=== PATIENT | female | born 1935 | race Caucasian/White ===

== ENCOUNTER 2016-08-08 08:00 | Outpatient (CLI) | payer MEDICARE, OTHER | END 2016-08-08 23:59 | DX: G62.9 Polyneuropathy, unspecified (principal); I10 Essential (primary) hypertension; E11.9 Type 2 diabetes mellitus without complications; E78.5 Hyperlipidemia, unspecified; N28.9 Disorder of kidney and ureter, unspecified ==

== ENCOUNTER 2016-11-07 07:23 | Outpatient (CLI) | payer MEDICARE, OTHER ==
[2016-11-07 13:50] LABS: HEMOGLOBIN A1C 0.63 g/dL
== END 2016-11-07 07:24 | disposition home or self-care (01) ==
LOC: LAB.WCP 07:23
PROVIDERS: ATTEND Family Medicine
DX: E11.42 Type 2 diabetes mellitus with diabetic polyneuropathy (principal); I10 Essential (primary) hypertension; K21.9 Gastro-esophageal reflux disease without esophagitis
CPT/HCPCS: 36415; 83036

== ENCOUNTER 2017-02-05 08:00 | Outpatient (CLI) | payer MEDICARE, OTHER ==
[2017-02-05 15:05] LABS: HEMOGLOBIN A1C 0.69 g/dL
[2017-02-05 16:58] LABS: ALBUMIN/GLOBULIN RATIO 1.3 (1.0-2.2); BILIRUBIN,TOTAL 0.5 mg/dL (0.2-1.0); BUN - BLOOD UREA NITROGEN 23 mg/dL (6-20); CALCIUM 9.3 mg/dL (8.5-10.3); CARBON DIOXIDE - CO2 32 mmol/L (21-32); CHLORIDE 95 mmol/L (101-111); CHOL/HDL RATIO 2.6 (<4.4); CHOLESTEROL 153 mg/dL; GFR - MDRD 53 (>89); GLUCOSE 88 mg/dL (70-100); HDL CHOLESTEROL 59 mg/dL; LDL/HDL RATIO 0.9 (<4.4); POTASSIUM 4.4 mmol/L (3.5-5.0); SODIUM 135 mmol/L (135-145); TOTAL PROTEIN 7.9 g/dL (6.7-8.2); TRIGLYCERIDES 207 mg/dL; VLDL CHOLESTEROL 41 mg/dL
== END 2017-02-05 08:01 | disposition home or self-care (01) ==
LOC: LAB.WCP 08:00
PROVIDERS: ATTEND Family Medicine
DX: E11.42 Type 2 diabetes mellitus with diabetic polyneuropathy (principal); I10 Essential (primary) hypertension; E78.5 Hyperlipidemia, unspecified; N28.9 Disorder of kidney and ureter, unspecified
CPT/HCPCS: 36415; 80053; 80061; 82043; 83036

== ENCOUNTER 2017-05-03 09:39 | Outpatient (CLI) | payer MEDICARE, OTHER ==
[2017-05-03 15:38] LABS: HEMOGLOBIN A1C 0.69 g/dL
== END 2017-05-03 09:40 | disposition home or self-care (01) ==
LOC: LAB.WCP 09:39
PROVIDERS: ATTEND Family Medicine
DX: E11.42 Type 2 diabetes mellitus with diabetic polyneuropathy (principal)
CPT/HCPCS: 36415; 83036

== ENCOUNTER 2017-10-17 09:07 | Outpatient (CLI) | payer MEDICARE, OTHER ==
[2017-10-17 12:46] LABS: HGB - HEMOGLOBIN 13.8 g/dL (12.0-16.0); MEAN CORPUSCULAR HEMOGLOBIN 30.2 pg (27.0-31.0); MEAN CORPUSCULAR HGB CONC 33.3 g/dL (32.0-36.0); MEAN CORPUSCULAR VOLUME 90.6 fL (81.0-99.0); MEAN PLATELET VOLUME 8.8 fL (7.9-10.8); RED BLOOD COUNT 4.59 10^6/uL (4.20-5.40); RED CELL DISTRIBUTION WIDTH 15.6 % (12.0-15.0); WHITE BLOOD COUNT 5.3 x10^3/uL (4.8-10.8)
[2017-10-17 13:30] LABS: ALBUMIN 4.2 g/dL (3.2-5.5); ALBUMIN/GLOBULIN RATIO 1.1 (1.0-2.2); ALKALINE PHOSPHATASE 70 IU/L (42-121); ALT ALANINE AMINOTRANSFERASE 32 IU/L (10-60); AST ASPARTATE AMINOTRANSFERASE 36 IU/L (10-42); BILIRUBIN,TOTAL 0.5 mg/dL (0.2-1.0); BUN - BLOOD UREA NITROGEN 21 mg/dL (6-20); CARBON DIOXIDE - CO2 28 mmol/L (21-32); CHLORIDE 102 mmol/L (101-111); CREATININE 1.1 mg/dL (0.4-1.0); GFR - MDRD 47 (>89); GLUCOSE 95 mg/dL (70-100); SODIUM 138 mmol/L (135-145); TOTAL PROTEIN 8.1 g/dL (6.7-8.2)
[2017-10-17 13:31] LABS: CRP - C-REACTIVE PROTEIN < 1.0 mg/dL (0-1.0)
[2017-10-17 16:44] LABS: RHEUMATOID FACTOR NEGATIVE (Negative)
== END 2017-10-17 09:08 ==
LOC: LAB.WCP 09:07
PROVIDERS: ATTEND Family Medicine
DX: E11.42 Type 2 diabetes mellitus with diabetic polyneuropathy (principal); I10 Essential (primary) hypertension; N28.9 Disorder of kidney and ureter, unspecified; M18.12 Unilateral primary osteoarthritis of first carpometacarpal joint, left hand; M19.011 Primary osteoarthritis, right shoulder; M54.5 Low back pain; G89.29 Other chronic pain
CPT/HCPCS: 36415; 80053; 84550; 85027; 85651; 86038; 86140; 86200; 86430

== ENCOUNTER 2017-11-12 07:39 | Outpatient (CLI) | END 2017-11-12 07:40 | disposition home or self-care (01) ==

== ENCOUNTER 2018-05-23 08:24 | Outpatient (CLI) | payer MEDICARE, OTHER ==
[2018-05-23 14:09] LABS: ALBUMIN 4.1 g/dL (3.2-5.5); ALBUMIN/GLOBULIN RATIO 1.3 (1.0-2.2); ALKALINE PHOSPHATASE 88 IU/L (42-121); ALT ALANINE AMINOTRANSFERASE 22 IU/L (10-60); AST ASPARTATE AMINOTRANSFERASE 30 IU/L (10-42); BILIRUBIN,TOTAL 0.4 mg/dL (0.2-1.0); BUN - BLOOD UREA NITROGEN 13 mg/dL (6-20); CALCIUM 8.9 mg/dL (8.5-10.3); CARBON DIOXIDE - CO2 27 mmol/L (21-32); CHLORIDE 95 mmol/L (101-111); CHOL/HDL RATIO 3.4 (<4.4); CHOLESTEROL 170 mg/dL; CREATININE 0.8 mg/dL (0.4-1.0); GFR - MDRD 68 (>89); GLUCOSE 99 mg/dL (70-100); HDL CHOLESTEROL 50 mg/dL; LDL CHOLESTEROL,CALCULATED 71 mg/dL; LDL/HDL RATIO 1.4 (<4.4); SODIUM 131 mmol/L (135-145); TOTAL PROTEIN 7.2 g/dL (6.7-8.2); VLDL CHOLESTEROL 49 mg/dL
[2018-05-23 14:18] LABS: HEMOGLOBIN A1C 0.64 g/dL; HEMOGLOBIN A1C % 6.3 % (4.6-6.2)
== END 2018-05-23 23:59 | disposition home or self-care (01) ==
LOC: LAB.WCP 08:24
PROVIDERS: ATTEND Family Medicine
DX: E11.42 Type 2 diabetes mellitus with diabetic polyneuropathy (principal); M10.9 Gout, unspecified; R94.5 Abnormal results of liver function studies; I10 Essential (primary) hypertension; E78.5 Hyperlipidemia, unspecified
CPT/HCPCS: 36415; 80053; 80061; 83036; 83721; 84443

== ENCOUNTER 2018-08-26 08:00 | Outpatient (CLI) | payer MEDICARE, OTHER ==
[2018-08-26 12:32] LABS: BASOPHILS # (AUTO) 0.1 10^3/uL (0.0-0.1); BASOPHILS % (AUTO) 1.2 %; EOSINOPHILS # (AUTO) 0.4 10^3/uL (0.0-0.7); EOSINOPHILS % (AUTO) 8.2 %; LYMPHOCYTES # (AUTO) 1.8 10^3/uL (1.5-3.5); LYMPHOCYTES % (AUTO) 37.4 %; MEAN CORPUSCULAR HEMOGLOBIN 29.2 pg (27.0-31.0); MEAN CORPUSCULAR HGB CONC 32.6 g/dL (32.0-36.0); MEAN CORPUSCULAR VOLUME 89.6 fL (81.0-99.0); MEAN PLATELET VOLUME 8.2 fL (7.9-10.8); MONOCYTES # (AUTO) 0.4 10^3/uL (0.0-1.0); MONOCYTES % (AUTO) 8.1 %; NEUTROPHILS # (AUTO) 2.1 10^3/uL (1.5-6.6); NEUTROPHILS % (AUTO) 45.1 %; PLT - PLATELET COUNT 223 10^3/uL (130-450); WHITE BLOOD COUNT 4.7 x10^3/uL (4.8-10.8)
[2018-08-26 13:26] LABS: ALBUMIN 4.2 g/dL (3.2-5.5); ALBUMIN/GLOBULIN RATIO 1.2 (1.0-2.2); ALKALINE PHOSPHATASE 61 IU/L (42-121); ALT ALANINE AMINOTRANSFERASE 33 IU/L (10-60); AST ASPARTATE AMINOTRANSFERASE 36 IU/L (10-42); BILIRUBIN,TOTAL 0.7 mg/dL (0.2-1.0); BUN - BLOOD UREA NITROGEN 19 mg/dL (6-20); CALCIUM 9.3 mg/dL (8.5-10.3); CARBON DIOXIDE - CO2 30 mmol/L (21-32); CHLORIDE 99 mmol/L (101-111); CHOL/HDL RATIO 2.7 (<4.4); CHOLESTEROL 151 mg/dL; CREATININE 1.1 mg/dL (0.4-1.0); GFR - MDRD 47 (>89); GLUCOSE 113 mg/dL (70-100); HB2 TOTAL 15.4 g/dL; HDL CHOLESTEROL 55 mg/dL; HEMOGLOBIN A1C 0.75 g/dL; HEMOGLOBIN A1C % 6.6 % (4.6-6.2); LDL CHOLESTEROL,CALCULATED 70 mg/dL; LDL/HDL RATIO 1.3 (<4.4); SODIUM 138 mmol/L (135-145); TOTAL PROTEIN 7.7 g/dL (6.7-8.2); VLDL CHOLESTEROL 26 mg/dL
== END 2018-08-26 23:59 | disposition home or self-care (01) ==
LOC: LAB.WCP 08:00
PROVIDERS: ATTEND Family Medicine
DX: I10 Essential (primary) hypertension (principal); E11.42 Type 2 diabetes mellitus with diabetic polyneuropathy; E78.5 Hyperlipidemia, unspecified
CPT/HCPCS: 36415; 80053; 80061; 83036; 83721; 85025

== ENCOUNTER 2018-11-25 08:12 | Outpatient (CLI) | payer MEDICARE, OTHER ==
[2018-11-25 12:36] LABS: BASOPHILS # (AUTO) 0.1 10^3/uL (0.0-0.1); BASOPHILS % (AUTO) 1.2 %; EOSINOPHILS # (AUTO) 0.5 10^3/uL (0.0-0.7); EOSINOPHILS % (AUTO) 10.6 %; HGB - HEMOGLOBIN 13.8 g/dL (12.0-16.0); LYMPHOCYTES # (AUTO) 1.9 10^3/uL (1.5-3.5); LYMPHOCYTES % (AUTO) 38.9 %; MEAN CORPUSCULAR HEMOGLOBIN 30.1 pg (27.0-31.0); MEAN CORPUSCULAR HGB CONC 32.8 g/dL (32.0-36.0); MEAN CORPUSCULAR VOLUME 91.7 fL (81.0-99.0); MEAN PLATELET VOLUME 9.5 fL (7.9-10.8); MONOCYTES # (AUTO) 0.4 10^3/uL (0.0-1.0); MONOCYTES % (AUTO) 8.2 %; NEUTROPHILS % (AUTO) 40.9 %; PLT - PLATELET COUNT 319 10^3/uL (130-450); RED BLOOD COUNT 4.59 10^6/uL (4.20-5.40); RED CELL DISTRIBUTION WIDTH 13.3 % (12.0-15.0)
[2018-11-25 13:14] LABS: ALBUMIN 4.2 g/dL (3.2-5.5); ALBUMIN/GLOBULIN RATIO 1.1 (1.0-2.2); ALKALINE PHOSPHATASE 105 IU/L (42-121); ALT ALANINE AMINOTRANSFERASE 38 IU/L (10-60); AST ASPARTATE AMINOTRANSFERASE 44 IU/L (10-42); BILIRUBIN,TOTAL 0.6 mg/dL (0.2-1.0); BUN - BLOOD UREA NITROGEN 22 mg/dL (6-20); CALCIUM 9.2 mg/dL (8.5-10.3); CARBON DIOXIDE - CO2 26 mmol/L (21-32); CHLORIDE 94 mmol/L (101-111); CHOL/HDL RATIO 2.3 (<4.4); CHOLESTEROL 127 mg/dL; GFR - MDRD 53 (>89); GLUCOSE 114 mg/dL (70-100); HDL CHOLESTEROL 55 mg/dL; LDL CHOLESTEROL,CALCULATED 46 mg/dL; LDL/HDL RATIO 0.8 (<4.4); SODIUM 132 mmol/L (135-145); VLDL CHOLESTEROL 26 mg/dL
[2018-11-25 13:25] LABS: HB2 TOTAL 14.7 g/dL; HEMOGLOBIN A1C 0.68 g/dL; HEMOGLOBIN A1C % 6.4 % (4.6-6.2)
== END 2018-11-25 23:59 | disposition home or self-care (01) ==
LOC: LAB.WCP 08:12
PROVIDERS: ATTEND Family Medicine
DX: I10 Essential (primary) hypertension (principal); E11.42 Type 2 diabetes mellitus with diabetic polyneuropathy; E78.5 Hyperlipidemia, unspecified; N28.9 Disorder of kidney and ureter, unspecified
CPT/HCPCS: 36415; 80053; 80061; 83036; 83721; 85025

== ENCOUNTER 2018-12-11 10:01 | Outpatient (CLI) | payer MEDICARE, OTHER ==
--- NOTE | 2018-12-12 08:58 | DEXA Report ---
Reason: POSTMENOPAUSAL STATUS Procedure Date: 12/11/2018 Accession Number: [id number] / [id number] Procedure: DEX - Dexa Spine and/or Hip CPT Code: FULL RESULT: EXAM: Dexa Spine and/or Hip DATE: 12/11/2018 10:45 AM CLINICAL HISTORY: POSTMENOPAUSAL STATUS TECHNIQUE: Dual energy x-ray absorptiometry (DXA) was performed on a [employer] System. Regions measured are the AP Spine, femoral neck, and if needed forearm. COMPARISON: None. In accordance with the International Society for Clinical Densitometry (ISCD) guidelines, data from previous exams may be reanalyzed using current recommendations and techniques. This is done to allow a more accurate basis for comparison with the current study. FINDINGS: The data for the lumbar spine is as follows: BMD (g/cm/cm) T-SCORE Z-SCORE REGION L1 0.874 -2.1 0.1 L2 0.951 -2.1 0.2 L3 1.008 -1.6 0.7 L4 1.150 -0.4 1.9 TOTAL 1.004 -1.5 0.8 NOTE: All evaluable vertebrae are used for classification The data for the hip is as follows: BMD (g/cm/cm) T-SCORE Z-SCORE REGION Neck 0.791 -1.8 0.8 TOTAL 0.928 -0.6 1.9 NOTE: The femoral neck or total proximal femur, whichever is lowest, is used for classification. IMPRESSION: THE WHO CLASSIFICATION BASED ON THE INTERNATIONAL REFERENCE STANDARD IS OSTEOPENIA. THE FRACTURE RISK IS INCREASED. RECOMMENDATION: Patients with diagnosis of osteoporosis or osteopenia should have regular bone mineral density assessment. For those eligible for Medicare, routine testing is allowed once every 2 years. Testing frequency can be increased for patients who have rapidly progressing disease or for those who are receiving medical therapy to restore bone mass. COMMENT: World Health Organization (WHO) definitions for osteoporosis and osteopenia: NORMAL BMD: T-score at -1.0 or higher, fracture risk is low OSTEOPENIA BMD: T-score between -1.0 and -2.5, fracture risk is increased. OSTEOPOROSIS BMD: T-score at -2.5 or lower, fracture risk is high. National Osteoporosis Foundation recommends: 1. Obtain adequate dietary calcium (at least 1200 mg per day) and vitamin D (400-800 international units per day). 2. Participate, as appropriate, in regular weightbearing and muscle-strengthening exercise. 3. Avoid tobacco use and reduce alcohol and caffeine intake. 4. For more detailed information see the website at www.NOF.org.
== END 2018-12-11 10:02 | disposition home or self-care (01) ==
LOC: DI 10:01
PROVIDERS: ATTEND Family Medicine
DX: M85.89 Other specified disorders of bone density and structure, multiple sites (principal); Z78.0 Asymptomatic menopausal state
CPT/HCPCS: 77080

== ENCOUNTER 2018-12-20 | Outpatient (CLI) | payer MEDICARE, OTHER | END 2018-12-20 23:59 | disposition home or self-care (01) | DX: I10 Essential (primary) hypertension (principal) ==

== ENCOUNTER 2018-12-27 07:59 | Outpatient (CLI) | payer MEDICARE, OTHER ==
[2018-12-27 12:19] LABS: CALCIUM 9.5 mg/dL (8.5-10.3); CREATININE 0.8 mg/dL (0.4-1.0)
== END 2018-12-27 23:59 | disposition home or self-care (01) ==
LOC: LAB.WCP 07:59
PROVIDERS: ATTEND Family Medicine
DX: E87.1 Hypo-osmolality and hyponatremia (principal)
CPT/HCPCS: 36415; 80048

== ENCOUNTER 2019-04-30 09:00 | Outpatient (CLI) | payer MEDICARE, OTHER ==
[2019-04-30 12:56] LABS: CALCIUM 9.5 mg/dL (8.5-10.3)
[2019-04-30 13:27] LABS: HB2 TOTAL 14.9 g/dL; HEMOGLOBIN A1C 0.74 g/dL; HEMOGLOBIN A1C % 6.7 % (4.6-6.2)
== END 2019-04-30 23:59 | disposition home or self-care (01) ==
LOC: LAB.WCP 09:00
PROVIDERS: ATTEND Family Medicine
DX: E11.42 Type 2 diabetes mellitus with diabetic polyneuropathy (principal)
CPT/HCPCS: 36415; 80048; 83036

== ENCOUNTER 2019-10-31 08:00 | Outpatient (CLI) | payer MEDICARE, OTHER ==
[2019-10-31 12:02] LABS: BASOPHILS # (AUTO) 0.1 10^3/uL (0.0-0.1); BASOPHILS % (AUTO) 0.9 %; EOSINOPHILS # (AUTO) 0.2 10^3/uL (0.0-0.7); EOSINOPHILS % (AUTO) 3.6 %; HGB - HEMOGLOBIN 13.7 g/dL (12.0-16.0); LYMPHOCYTES % (AUTO) 30.6 %; MEAN CORPUSCULAR HEMOGLOBIN 30.3 pg (27.0-31.0); MEAN CORPUSCULAR HGB CONC 31.4 g/dL (32.0-36.0); MEAN CORPUSCULAR VOLUME 96.5 fL (81.0-99.0); MEAN PLATELET VOLUME 10.5 fL (7.9-10.8); MONOCYTES # (AUTO) 0.4 10^3/uL (0.0-1.0); MONOCYTES % (AUTO) 6.3 %; NEUTROPHILS # (AUTO) 3.9 10^3/uL (1.5-6.6); NEUTROPHILS % (AUTO) 58.3 %; PLT - PLATELET COUNT 216 10^3/uL (130-450); RED BLOOD COUNT 4.52 10^6/uL (4.20-5.40); RED CELL DISTRIBUTION WIDTH 13.9 % (12.0-15.0); WHITE BLOOD COUNT 6.6 x10^3/uL (4.8-10.8)
[2019-10-31 12:27] LABS: HB2 TOTAL 14.2 g/dL; HEMOGLOBIN A1C 0.59 g/dL
[2019-10-31 12:36] LABS: ALBUMIN 3.7 g/dL (3.2-5.5); ALKALINE PHOSPHATASE 175 IU/L (42-121); ALT ALANINE AMINOTRANSFERASE 48 IU/L (10-60); AST ASPARTATE AMINOTRANSFERASE 85 IU/L (10-42); BILIRUBIN,TOTAL 0.8 mg/dL (0.2-1.0); BUN - BLOOD UREA NITROGEN 13 mg/dL (6-20); CALCIUM 9.2 mg/dL (8.5-10.3); CARBON DIOXIDE - CO2 27 mmol/L (21-32); CHLORIDE 100 mmol/L (101-111); CHOL/HDL RATIO 2.4 (<4.4); CHOLESTEROL 152 mg/dL; CREATININE 0.8 mg/dL (0.4-1.0); GLUCOSE 106 mg/dL (70-100); HDL CHOLESTEROL 64 mg/dL; LDL CHOLESTEROL,CALCULATED 62 mg/dL; SODIUM 136 mmol/L (135-145); TOTAL PROTEIN 7.5 g/dL (6.7-8.2); VLDL CHOLESTEROL 26 mg/dL
[2019-10-31 13:24] LABS: PLATELET ESTIMATE, MANUAL NORMAL (130-450,000) (NORMAL); PLATELET MORPHOLOGY NORMAL APPEARANCE (NORMAL); RBC MORPHOLOGY (MULTIPLE) NORMAL APPEARANCE (NORMAL)
== END 2019-10-31 23:59 | disposition home or self-care (01) ==
LOC: LAB.WCP 08:00
PROVIDERS: ATTEND Family Medicine
DX: E11.42 Type 2 diabetes mellitus with diabetic polyneuropathy (principal)
CPT/HCPCS: 36415; 80053; 80061; 83036; 83721; 85025

== ENCOUNTER 2019-11-15 07:20 | Outpatient (CLI) | payer MEDICARE, OTHER ==
--- NOTE | 2019-11-15 19:11 | Ultrasound Report ---
PROCEDURE: Abdomen Complete INDICATIONS: ABNORMAL LIVER FUNCTION TEST TECHNIQUE: Real-time scanning was performed of the abdominal and retroperitoneal organs, with image documentatio n. COMPARISON: None. FINDINGS: Liver: The liver has a coarsened echo pattern and surface nodularity suggesting possible cirrhotic ch jeanie. No focal liver masses. Gallbladder: Contains an incidental 3 mm polyp. No gallstones. No gallbladder wall thickening or pain on examination. Biliary ducts: Intrahepatic bile ducts are non-dilated. Extrahepatic bile duct caliber measures 5 m m. Normal is 6-7 mm or less in diameter, or 10 mm or less post-cholecystectomy. Pancreas: Visualized portions of the pancreas are sonographically normal. Spleen: Spleen is normal in size and homogeneous in echotexture. Kidneys: Kidneys are somewhat small. Right kidney measures 8.0 cm long; left kidney measures 7.8 cm long. No hydronephrosis or nephrolithiasis. No solid masses. Aorta: Visualized aorta is normal in caliber at less than 3 cm. Iliacs: Proximal common iliac arteries are normal in caliber at less than 2.5 cm. IVC: Intrahepatic inferior vena cava is patent. Miscellaneous: No free abdominal fluid. IMPRESSION: 1. Appearance of the liver suggest possible cirrhotic change. No focal liver masses. 2. No gallstones. No dilated ducts. 3. Kidneys are somewhat small, likely within normal limits for patient age. Reviewed by: Michael Lainez MD on 11/15/2019 6:10 PM [place] Approved by: Michael Lainez MD on 11/15/2019 6:10 PM [place]ANNA Station ID: [id number]
== END 2019-11-15 07:21 | disposition home or self-care (01) ==
LOC: DI 07:20
PROVIDERS: ATTEND Family Medicine
DX: R93.2 Abnormal findings on diagnostic imaging of liver and biliary tract (principal)
CPT/HCPCS: 76700

== ENCOUNTER 2019-12-09 15:21 | Emergency (ER) | payer MEDICARE, OTHER ==
[2019-12-09] MEDS ORDERED: ACETAMINOPHEN 325 MG TABLET PO STA (16:52)
--- NOTE | 2019-12-09 16:57 | ED Physician Documentation ---
History of Present Illness - Stated complaint Stated Complaint: GLF - HIT HEAD - Chief complaint Chief Complaint: Trauma Hd/Nk - History obtained from History obtained from: Patient - History of Present Illness Timing: Prior to arrival, How many hours ago (3) Pain level max: 10 Pain level now: 5 - Additonal information Additional information: 84-year-old female presents to the emergency department with a large posterior scalp hematoma after ground-level fall at home. She reports that she was moving some heavy boxes in the garage in order to facilitate moving her vehicle into it. Unfortunately 1 of these boxes struck her she fell back striking her head on the concrete.She denies that she had any loss of consciousness but had difficulty standing up after the fall. She felt that she was dizzy. She takes no blood thinners. Review of Systems Constitutional: denies: Fever, Chills Cardiac: denies: Chest pain / pressure, Palpitations Respiratory: denies: Dyspnea, Cough GI: denies: Abdominal Pain, Vomiting Skin: reports: Other (4 cm circumferential scalp hematoma posterior scalp). denies: Rash, Lesions Musculoskeletal: denies: Neck pain, Back pain, Extremity pain Neurologic: reports: Headache. denies: Generalized weakness, Focal weakness, Numbness, Difficulty speaking, Syncope, Seizure, Confused, Altered mental status PD PAST MEDICAL HISTORY - Past Medical History Past Medical History: Yes Cardiovascular: Hypertension, High cholesterol Endocrine/Autoimmune: Type 2 diabetes - Past Surgical History Past Surgical History: Yes - Present Medications Home Medications: Ambulatory Orders Medication Instructions Recorded Confirmed RX: Lisinopril [Prinivil] 12/09/19 RX: Simvastatin 12/09/19 - Allergies Allergies/Adverse Reactions: Allergies Allergy/AdvReac Type Severity Reaction Status Date / Time No Known Drug Allergies Allergy Verified 12/09/19 15:25 - Social History Does the pt smoke?: No Smoking Status: Never smoker Does the pt drink ETOH?: No Does the pt have substance abuse?: No - Immunizations Immunizations are current?: Yes PD ED PE NORMAL - General General: Alert and oriented X 3, No acute distress, Well developed/nourished - HEENT HEENT: PERRL, Ears normal, Other (negative racoons, negative rosenbaum sign; no ear or nasal draiange) - Neck Neck: Supple, no meningeal sign - Cardiac Cardiac: RRR, No murmur - Respiratory Respiratory: No respiratory distress - Abdomen Abdomen: Normal bowel sounds, Non tender - Back Back: No CVA TTP, No spinal TTP - Derm Derm: Normal color, Warm and dry, Other (4 cm circumferential scalp hematoma po sterior occiput) - Extremities Extremities: No deformity, No tenderness to palpate - Neuro Neuro: Alert and oriented X 3, fire tender 2-12 intact, No motor deficit, No sensory deficit, Other (normal usassisted gait) Eye Opening: Spontaneous Motor: Obeys Commands Verbal: Oriented GCS Score: 15 Results - Vitals Vitals: Vital Signs - 24 hr 12/09/19 15:25 Temperature 36.5 C Heart Rate 85 Respiratory 14 Rate Blood Pressure 171/87 H O2 Saturation 98 Oxygen O2 Source Room air - Rads (name of study) CT head Radiology: Final report received PD MEDICAL DECISION MAKING - ED course Complexity details: reviewed results, d/w patient ED course: 84 year old female presents to the ED with a large posterior occiupt scalp hematoma folowing a GLF this afternoon at hoem when she was hit by large boxes that she was moving. She has had no LOC, seizure activity. She is not taking blood thinners - Given the large scalp hematoma CT scanning was completed to rule out any type of intracranial injury. - large scalp hematoma noted on CT, but no e/o SDH, EDH or worrisome TBI - dc home. emergent return precautions discussed Departure - Departure Disposition: 01 Home, Self Care Clinical Impression: Fall Scalp hematoma Qualifiers: Encounter type: initial encounter Qualified Code(s): S00.03XA - Contusion of scalp, initial encounter Condition: Stable Record reviewed to determine appropriate education?: Yes Instructions: ED Hematoma Follow-Up: Raza Kim DO [Primary Care Provider] - Comments: Hannah the CT scanning of your head does not show any broken bones or bruising or bleeding on the brain. There is a large bruise in the skin of your head but we expect this after the fall. You can take Tylenol at home for pain. I would continue apply the ice pack. Continue to follow-up with your primary doctor tomorrow as already scheduled. Return to the emergency department if you have a suddenly severe headache, uncontrolled vomiting, cannot walk speak or move normally
--- NOTE | 2019-12-09 17:53 | CT Report ---
PROCEDURE: HEAD WO INDICATIONS: Ground-level fall TECHNIQUE: Noncontrast 4.5 mm thick angled axial sections acquired from the foramen magnum to the vertex. For r adiation dose reduction, the following was used: automated exposure control, adjustment of mA and/or kV according to patient size. COMPARISON: None. FINDINGS: Image quality: Excellent. CSF spaces: Basal cisterns are patent. No abnormal extra-axial fluid collection. Ventricles are no rmal in size and shape. Brain: No no evidence of acute intracranial hemorrhage. There is global cerebral volume loss with chr onic vascular ischemic change, both advanced even for the patient's age. No CT evidence of acute larg e territory infarct. Skull and face: Calvarium and visualized facial bones are intact, without suspicious lesions. No ac sandee orbital abnormality. Scalp hematoma in the high posterior parietal region near midline. Sinuses: Visualized sinuses and mastoids are clear. IMPRESSION: No acute intracranial abnormality demonstrated. Scalp hematoma in the high posterior par ietal region near midline. Reviewed by: Jeff Lopez MD on 12/09/2019 5:52 PM PDT Approved by: Jeff Lopez MD on 12/09/2019 5:52 PM PDT Station ID: [id number]
[2019-12-09 18:25] VITALS: BP 149/80
== END 2019-12-09 18:28 | disposition home or self-care (01) ==
LOC: ED 15:21
DX: S00.03XA Contusion of scalp, initial encounter (principal); W18.09XA Striking against other object with subsequent fall, initial encounter; Y93.89 Activity, other specified; Y92.008 Other place in unspecified non-institutional (private) residence as the place of occurrence of the external cause; I10 Essential (primary) hypertension; E11.9 Type 2 diabetes mellitus without complications
CPT/HCPCS: 70450; 99282; 99284; A9270

== ENCOUNTER 2020-03-30 08:00 | Outpatient (CLI) | payer MEDICARE, OTHER ==
[2020-03-30 18:11] LABS: PT - PROTHROMBIN TIME 11.5 secs (9.9-12.6)
[2020-03-30 18:28] LABS: ALBUMIN 3.7 g/dL (3.2-5.5); ALBUMIN/GLOBULIN RATIO 0.9 (1.0-2.2); ALKALINE PHOSPHATASE 260 IU/L (42-121); ALT ALANINE AMINOTRANSFERASE 40 IU/L (10-60); AST ASPARTATE AMINOTRANSFERASE 83 IU/L (10-42); BILIRUBIN,TOTAL 0.6 mg/dL (0.2-1.0); BUN - BLOOD UREA NITROGEN 16 mg/dL (6-20); CALCIUM 9.3 mg/dL (8.5-10.3); CARBON DIOXIDE - CO2 26 mmol/L (21-32); CHLORIDE 100 mmol/L (101-111); CHOL/HDL RATIO 2.2 (<4.4); CHOLESTEROL 169 mg/dL; CREATININE 0.8 mg/dL (0.4-1.0); GLUCOSE 80 mg/dL (70-100); HDL CHOLESTEROL 77 mg/dL; LDL CHOLESTEROL,CALCULATED 76 mg/dL; SODIUM 136 mmol/L (135-145); VLDL CHOLESTEROL 16 mg/dL
[2020-03-30 18:29] LABS: BASOPHILS # (AUTO) 0.1 10^3/uL (0.0-0.1); BASOPHILS % (AUTO) 1.6 %; EOSINOPHILS # (AUTO) 0.5 10^3/uL (0.0-0.7); EOSINOPHILS % (AUTO) 7.7 %; HGB - HEMOGLOBIN 13.5 g/dL (12.0-16.0); LYMPHOCYTES % (AUTO) 29.8 %; MEAN CORPUSCULAR HEMOGLOBIN 31.8 pg (27.0-31.0); MEAN CORPUSCULAR HGB CONC 32.5 g/dL (32.0-36.0); MEAN CORPUSCULAR VOLUME 97.9 fL (81.0-99.0); MEAN PLATELET VOLUME 10.1 fL (7.9-10.8); MONOCYTES # (AUTO) 0.5 10^3/uL (0.0-1.0); MONOCYTES % (AUTO) 7.7 %; NEUTROPHILS # (AUTO) 3.6 10^3/uL (1.5-6.6); NEUTROPHILS % (AUTO) 53.1 %; PLT - PLATELET COUNT 233 10^3/uL (130-450); RED BLOOD COUNT 4.25 10^6/uL (4.20-5.40); RED CELL DISTRIBUTION WIDTH 14.6 % (12.0-15.0); WHITE BLOOD COUNT 6.8 x10^3/uL (4.8-10.8)
[2020-03-30 18:43] LABS: CREATININE,URINE 66.5 mg/dL; MICROALBUM/CREATININE RATIO,UR 84.2 ug/mg (<30.0); MICROALBUMIN,URINE 5.6 mg/dL (0-300.0)
[2020-03-30 19:15] LABS: PLATELET ESTIMATE, MANUAL NORMAL (130-450,000) (NORMAL); PLATELET MORPHOLOGY NORMAL APPEARANCE (NORMAL); RBC MORPHOLOGY (MULTIPLE) NORMAL APPEARANCE (NORMAL)
[2020-03-30 21:35] LABS: HEMOGLOBIN A1c% 5.6 % (4.27-6.07)
== END 2020-03-30 23:59 | disposition home or self-care (01) ==
LOC: LAB.WCP 08:00
PROVIDERS: ATTEND Family Medicine
DX: E11.42 Type 2 diabetes mellitus with diabetic polyneuropathy (principal); E78.5 Hyperlipidemia, unspecified; K74.60 Unspecified cirrhosis of liver
CPT/HCPCS: 36415; 80053; 80061; 82043; 82105; 82570; 83036; 83721; 85025; 85610

== ENCOUNTER 2020-04-09 06:49 | Outpatient (CLI) | payer MEDICARE, OTHER ==
--- NOTE | 2020-04-09 14:48 | Ultrasound Report ---
PROCEDURE: Abdomen Limited INDICATIONS: CIRRHOSIS TECHNIQUE: Real-time scanning was performed of the abdominal and retroperitoneal organs, with image documentatio n. COMPARISON: None. FINDINGS: Liver: Liver measures 9.8 cm with an overall coarsened appearance. Gallbladder: Gallbladder demonstrates a nonmobile focus of increased echogenicity within the fundus m easuring 4 x 3 mm. Wall thickness is within normal limits measuring 2 mm. Biliary ducts: Intrahepatic bile ducts are non-dilated. Extrahepatic bile duct caliber measures 4 m m. Normal is 6-7 mm or less in diameter, or 10 mm or less post-cholecystectomy. Pancreas: Visualized portions of the pancreas demonstrates a cystic focus measuring 11 x 7 x 6 mm. I t appears likely to have been present on prior exam, although suboptimally evaluated. Spleen: Spleen is normal in size and homogeneous in echotexture. Kidneys: Kidneys are normal in size and echotexture. Right kidney measures 8.5 cm long. No hydrone phrosis or nephrolithiasis. No solid masses. Simple right inferior pole cyst is noted measuring 10 x 7 x 9 mm. IVC: Intrahepatic inferior vena cava is patent. Miscellaneous: No free abdominal fluid. IMPRESSION: 1. Persistent appearance of nodularity of the liver suggestive of cirrhosis. 2. Pancreatic cyst, likely present on prior exam without ductal dilation. Appearance is indeterminate based on current exam. Pancreatic CT versus serial ultrasound follow-up is recommended, as cystic ma lignancy cannot be excluded. Reviewed by: Sheree Dean MD on 04/09/2020 2:46 PM PST Approved by: Sheree Dean MD on 04/09/2020 2:46 PM PST Station ID: [id number]
== END 2020-04-09 06:50 | disposition home or self-care (01) ==
LOC: DI 06:49
PROVIDERS: ATTEND Family Medicine
DX: R93.2 Abnormal findings on diagnostic imaging of liver and biliary tract (principal); K86.2 Cyst of pancreas
CPT/HCPCS: 76705

== ENCOUNTER 2020-06-03 10:09 | Outpatient (CLI) | payer MEDICARE, OTHER ==
[2020-06-03 10:56] LABS: CREATININE 0.8 mg/dL (0.4-1.0)
[2020-06-03] MEDS ORDERED: IOVERSOL 320 100 ML VIAL IVP ONE ×2 (11:25→13:39)
--- NOTE | 2020-06-03 17:08 | CT Report ---
PROCEDURE: ABDOMEN W INDICATIONS: PANCREATIC CYST CONTRAST: IV CONTRAST: Optiray 320 ml: 100 PO CONTRAST: *NO PO CONTRAST TECHNIQUE: Noncontrast 3 mm thick sections acquired through the pancreas. After the administration of intraveno us contrast, 3 mm thick pancreatic-phase images acquired through the pancreas, and 5 mm thick portal venous-phase images then acquired from the diaphragm to the iliac crests. 5 mm thick coronal and sag ittal reformats were performed. For radiation dose reduction, the following was used: automated expo sure control, adjustment of mA and/or kV according to patient size. COMPARISON: Abdominal ultrasound 04/09/2020, 11/15/2019. FINDINGS: Image quality: Excellent. Lung bases: There is mild dependent atelectasis. Heart size is borderline enlarged. Pancreas: There is a lobulated cystic lesion in the uncinate process of the pancreas medially measur ing up to 2.9 x 2.7 x 3.9 cm. There is an internal focus of dependent calcification. No discrete sj d nodular enhancing component. A curvilinear component superiorly demonstrates suspected communicatio n with the main pancreatic duct. Within the pancreatic head, there is a lobulated cystic lesion also demonstrated measuring approximately 2.5 x 1.4 x 1.4 cm in aggregate dimension. There is mildly heter ogeneous internal density. Within the body of the pancreas, there is also an oval small cystic lesion measuring 1.0 x 0.7 x 0.7 cm. The lesions demonstrate probable communication with the main pancreati c duct. The main pancreatic duct appears normal in caliber. Other solid organs: Evaluation of the liver demonstrates no discrete hepatic mass lesion. All bladde r demonstrates mild wall thickening without calcified gallstones or pericholecystic fluid. Biliary sy stem is non dilated. There is mild thickening of the adrenal glands. Kidneys demonstrate no hydroneph rosis. Small renal cysts are demonstrated. Peritoneum and bowel: Visualized bowel loops demonstrate normal wall thickness and caliber. No free fluid or air. Nodes and vessels: No retroperitoneal or mesenteric adenopathy by size criteria. Aorta and inferior vena cava are normal in size. Bones: No suspicious bony lesions. No vertebral body compression fractures. Miscellaneous: No ventral hernias. IMPRESSION: 1. Multiple cystic lesions in the straight within the pancreas as described with probable communicati on with the pancreatic duct. 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 2. Heterogeneous density demonstrated within the lobulated cystic lesion in the pancreatic head. A hi gh risk enhancing internal solid component cannot be excluded. Recommend GI consultation and further evaluation with a pancreatic protocol MRI if clinically indicated. 3. Remaining cystic lesions within the uncinate process and pancreatic body demonstrate no definite h igh risk features. Follow-up imaging is recommended in 12 months to demonstrate stability of these le sions. Reviewed by: Rasta Frias MD on 06/03/2020 5:06 PM PST Approved by: Rasta Frias MD on 06/03/2020 5:06 PM PST Station ID: [id number]
== END 2020-06-03 10:10 | disposition home or self-care (01) ==
LOC: DI 10:09
PROVIDERS: ATTEND Family Medicine
DX: K86.2 Cyst of pancreas (principal)
CPT/HCPCS: 36415; 74160; 82565; Q9967

== ENCOUNTER 2020-11-28 00:50 | Inpatient (IN) | payer MEDICARE, OTHER ==
--- NOTE | 2020-11-28 02:26 | ED Physician Documentation ---
PD HPI Fall - Stated complaint Stated Complaint: GLF, DIZZY, BACK/HIP PX - Chief complaint Chief Complaint: Trauma Ch/Bk - History obtained from History obtained from: Patient, Family - History of Present Illness Mechanism of injury: Lost balance Fall distance: Standing position Where injury occurred: Home Timing - onset: Enter time (2100), Today Injury(ies) location: Chest, Left Lower Extremity Quality of pain: Pain Associated symptoms: No: LOC, AMS, Amnesia, Seizures Symptoms improve with: Rest Worsens with: Movement, Palpation Contributing factors: No: Anticoagulated, Intoxicated Similar symptoms before: Has not had sx before Recently seen: Not recently seen - Additional information Additional information: 85-year-old female with a history of a of cirrhosis and pancreatic cyst got up to answer the phone this evening lost her balance fell struck her left hip on the ground and her left ribs against the coffee table. She has pain in her ribs and she has pain in her pelvis. She has pain to get up and walk around. She is not having shortness of breath. She has not been recently ill. Review of Systems Constitutional: denies: Fever Eyes: denies: Decreased vision Ears: denies: Ear pain Nose: denies: Congestion Throat: denies: Sore throat Cardiac: reports: Chest pain / pressure. denies: Palpitations Respiratory: denies: Dyspnea, Cough GI: reports: Constipation. denies: Abdominal Pain, Nausea, Vomiting, Diarrhea : denies: Dysuria, Frequency Skin: denies: Rash Musculoskeletal: reports: Extremity pain. denies: Neck pain, Back pain, Extremity swelling Neurologic: denies: Generalized weakness, Focal weakness, Numbness PD PAST MEDICAL HISTORY - Past Medical History Past Medical History: Yes Cardiovascular: Hypertension, High cholesterol Endocrine/Autoimmune: Type 2 diabetes GI: Cirrhosis Other Past Medical History: pancreatic cysts - Past Surgical History Past Surgical History: Yes - Present Medications Home Medications: Ambulatory Orders Medication Instructions Recorded Confirmed Simvastatin 12/09/19 lisinopriL [Prinivil] 12/09/19 - Allergies Allergies/Adverse Reactions: Allergies Allergy/AdvReac Type Severity Reaction Status Date / Time No Known Drug Allergies Allergy Verified 11/28/20 00:57 - Social History Does the pt smoke?: No Smoking Status: Never smoker Does the pt drink ETOH?: No Does the pt have substance abuse?: No - Immunizations Immunizations are current?: Yes PD ED PE NORMAL - Vitals Vital signs reviewed: Yes (hypertnesive mild ) - General General: Alert and oriented X 3, No acute distress, Well developed/nourished - HEENT HEENT: Atraumatic, PERRL, EOMI - Neck Neck: Supple, no meningeal sign, No bony TTP - Cardiac Cardiac: RRR, No murmur - Respiratory Respiratory: No respiratory distress, Clear bilaterally, Other (There is point tenderness to the posterior lateral aspect of the chest wall on the left side specifically over the ribs. The first place I placed my hands I felt the fracture shift. ) - Abdomen Abdomen: Normal bowel sounds, Soft, Non tender, Non distended, No organomegaly - Back Back: No CVA TTP, No spinal TTP - Derm Derm: Normal color, Warm and dry, No rash - Extremities Extremities: No deformity, No edema, Other (There is mild point tenderness to the trochanter on the left side and there is point tenderness over the pelvic brim.) - Neuro Neuro: Alert and oriented X 3, blood bank manager 2-12 intact, No motor deficit, No sensory deficit, Normal speech Eye Opening: Spontaneous Motor: Obeys Commands Verbal: Oriented GCS Score: 15 - Psych Psych: Normal mood, Normal affect Results - Vitals Vitals: Vital Signs - 24 hr 11/28/20 11/28/20 11/28/20 00:57 01:03 03:03 Temperature 36.6 C 36.6 C Heart Rate 69 69 61 Respiratory 16 16 16 Rate Blood Pressure 146/60 H 146/60 H 145/61 H O2 Saturation 100 100 100 11/28/20 05:00 Temperature 36.6 C Heart Rate 82 Respiratory 16 Rate Blood Pressure 135/68 H O2 Saturation 100 Oxygen O2 Source Room air - Labs Labs: Laboratory Tests 11/28/20 11/28/20 04:40 04:40 WBC 7.9 RBC 3.68 L Hgb 11.9 L Hct 35.2 L MCV 95.7 MCH 32.3 H MCHC 33.8 RDW 14.6 Plt Count 145 MPV 9.7 Neut # (Auto) 5.4 Lymph # (Auto) 1.7 [place] # (Auto) 0.6 Eos # (Auto) 0.2 Baso # (Auto) 0.1 Absolute Nucleated RBC 0.00 Nucleated RBC % 0.0 Sodium 131 L Potassium 4.6 Chloride 98 L Carbon Dioxide 24 Anion Gap 9.0 BUN 20 Creatinine 1.0 Estimated GFR (MDRD) 52 L Glucose 105 H Calcium 9.0 Total Bilirubin 1.2 H AST 57 H ALT 32 Alkaline Phosphatase 162 H Total Protein 7.5 Albumin 3.3 Globulin 4.2 Albumin/Globulin Ratio 0.8 L Lipase 47 - Rads (name of study) ribs with PA chest Radiology: Prelim report reviewed (Impression: Left lateral eighth through 10th rib fractures.), EMP read indepedently, See rad report Left hip with pelvis Radiology: Prelim report reviewed (Impression: No acute findings.), EMP read indepedently, See rad report Procedures - IVC sono (time) 0220 Bedside IVC sono: IVC measures (cm) (1.46), IVC collapsed c insp (cm) (complete), Dehydration (minimal <500ml) PD MEDICAL DECISION MAKING - ED course Complexity details: reviewed results, re-evaluated patient, considered differential, d/w patient, d/w family ED course: 85-year-old female with a fall in her living room has an injury to her ribs and her pelvis. X-rays were obtained. She is administered Toradol for pain. She has improvement in her pain with use of the Toradol and x-rays demonstrate 3 rib fractures on the left and no fracture to the pelvis or hip. Dr. Bill Ocampo is consulted in the case and graciously agrees to care for the patient in the hospital on the trauma service. Departure - Departure Disposition: [facility] DC/Xfer Clinical Impression: Fracture of multiple ribs of left side Qualifiers: Encounter type: initial encounter Fracture type: closed Qualified Code(s): S22.42XA - Multiple fractures of ribs, left side, initial encounter for closed fracture Contusion of left hip Qualifiers: Encounter type: initial encounter Qualified Code(s): S70.02XA - Contusion of left hip, initial encounter Condition: Stable
[2020-11-28] MEDS ORDERED: KETOROLAC 30 MG/ML VIAL IM STA (02:27)
[2020-11-28 04:46] LABS: BASOPHILS # (AUTO) 0.1 10^3/uL (0.0-0.1); BASOPHILS % (AUTO) 0.6 %; EOSINOPHILS # (AUTO) 0.2 10^3/uL (0.0-0.7); HCT - HEMATOCRIT 35.2 % (37.0-47.0); HGB - HEMOGLOBIN 11.9 g/dL (12.0-16.0); LYMPHOCYTES # (AUTO) 1.7 10^3/uL (1.5-3.5); MEAN CORPUSCULAR HEMOGLOBIN 32.3 pg (27.0-31.0); MEAN CORPUSCULAR HGB CONC 33.8 g/dL (32.0-36.0); MEAN CORPUSCULAR VOLUME 95.7 fL (81.0-99.0); MEAN PLATELET VOLUME 9.7 fL (7.9-10.8); MONOCYTES # (AUTO) 0.6 10^3/uL (0.0-1.0); MONOCYTES % (AUTO) 7.4 %; NEUTROPHILS # (AUTO) 5.4 10^3/uL (1.5-6.6); NEUTROPHILS % (AUTO) 68.7 %; PLT - PLATELET COUNT 145 10^3/uL (130-450); RED BLOOD COUNT 3.68 10^6/uL (4.20-5.40); RED CELL DISTRIBUTION WIDTH 14.6 % (12.0-15.0); WHITE BLOOD COUNT 7.9 x10^3/uL (4.8-10.8)
[2020-11-28 04:58] LABS: ALBUMIN 3.3 g/dL (3.2-5.5); ALBUMIN/GLOBULIN RATIO 0.8 (1.0-2.2); BILIRUBIN,TOTAL 1.2 mg/dL (0.2-1.0); POTASSIUM 4.6 mmol/L (3.5-5.0); TOTAL PROTEIN 7.5 g/dL (6.7-8.2)
[2020-11-28] MEDS ORDERED: ALBUTEROL NEB 2.5 MG/3 ML INH PRN (05:24)
[2020-11-28] MEDS ORDERED: HYDROmorphone 0.5 MG/0.5 ML SYRINGE IVP PRN (05:24)
[2020-11-28] MEDS ORDERED: SODIUM CHLORIDE FLUSH 0.9% 10 ML SYRINGE IVP PRN ×2 (05:24)
[2020-11-28] MEDS ORDERED: METOCLOPRAMIDE 10 MG/2 ML VIAL IVP PRN (05:24)
[2020-11-28] MEDS ORDERED: ACETAMINOPHEN 1,000 MG/100 ML 100 ML IV PRN (05:24)
[2020-11-28] MEDS ORDERED: ONDANSETRON 4 MG/2 ML VIAL IVP PRN (05:24)
[2020-11-28] MEDS ORDERED: methocarbamoL 500 MG TABLET PO SCH (06:00)
[2020-11-28] MEDS ORDERED: KETOROLAC 30 MG/ML VIAL IVP SCH (06:00)
[2020-11-28 06:05] LABS: B. PARAPERTUSSIS- RESP PCR PAN NOT DETECTED; B. PERTUSSIS- RESP PCR PANEL NOT DETECTED; C. PNEUMONIAE- RESP PCR PANEL NOT DETECTED; CORONAVIRUS 229E-RESP PCR NOT DETECTED; CORONAVIRUS HKU1-RESP PCR NOT DETECTED; CORONAVIRUS NL63-RESP PCR NOT DETECTED; CORONAVIRUS OC43-RESP PCR NOT DETECTED; HUMAN METAPNEUMOVIRUS NOT DETECTED; INFLUENZA A- RESP PCR PANEL NOT DETECTED; INFLUENZA B - RESP PCR PANEL NOT DETECTED; M. PNEUMONIAE- RESP PCR PANEL NOT DETECTED; PARAINFLUENZA VIRUS 1 NOT DETECTED; PARAINFLUENZA VIRUS 2 NOT DETECTED; PARAINFLUENZA VIRUS 3 NOT DETECTED; PARAINFLUENZA VIRUS 4 NOT DETECTED; RHINOVIRUS/ENTEROVIRUS NOT DETECTED; RSV- RESP PCR PANEL NOT DETECTED; SARS-CoV-2 -RESP PCR PANEL NOT DETECTED
[2020-11-28] MEDS: SODIUM CHLORIDE FLUSH 0.9% 10 ML SYRINGE IVP SCH ×4 (06:27→17:52)
[2020-11-28] MEDS: D5NS W/20 MEQ KCL 1,000 ML IV SCH ×3 (06:27→22:06)
[2020-11-28] MEDS: methocarbamoL 500 MG TABLET PO SCH ×3 (06:28→18:01)
[2020-11-28] MEDS: PANTOPRAZOLE 40 MG VIAL IVP SCH (06:35)
[2020-11-28] MEDS ORDERED: IPRATROPIUM 0.2 MG/ML NEB INH SCH (07:00)
--- NOTE | 2020-11-28 07:53 | XRAY Report ---
PROCEDURE: Hip w/Pelvis 2-3V LT INDICATIONS: fall on left pain to pelvis TECHNIQUE: AP pelvis with lateral view(s) of the bilateral hip(s). COMPARISON: Correlation is made with the accompanying rib plain films, 11/28/2020. FINDINGS: Bones: No fractures or dislocations. Pelvic ring appears intact. No suspicious bony lesions. Mild to moderate degenerative changes are seen of the hips. At least moderate degenerative change can be seen of the lower lumbar spine. Soft tissues: The visualized bowel gas pattern is normal. Benign-appearing calcifications can be see n involving the left buttock. IMPRESSION: Negative for acute fracture or dislocation. Degenerative changes can be seen. Note: No significant discrepancy from the preliminary report. Reviewed by: Andres Peña MD on 11/28/2020 6:52 AM [place] Approved by: Andres Peña MD on 11/28/2020 6:52 AM [place] Station ID: [id number]
--- NOTE | 2020-11-28 07:56 | XRAY Report ---
PROCEDURE: Ribs w/PA Chest LT INDICATIONS: fall post/lat pain TECHNIQUE: 4 views of the left ribs were acquired, along with a single view chest. COMPARISON: Correlation is made with the accompanying hip plain films, 11/28/2020. FINDINGS: Surgical changes and devices: Left midthoracic postoperative clips are seen. Bones and chest wall: Minimally displaced fractures can be seen involving the left lateral 8th throug h 10th ribs. No suspicious bony lesions. Age-appropriate degenerative changes are seen. Overlying s oft tissues appear unremarkable. Lungs and pleura: No pleural effusions or pneumothorax. Lungs appear clear. Mediastinum: The aorta is prominent and tortuous. The cardiac contours are within normal limits. IMPRESSION: Minimally displaced left lateral 8th through 10th rib fractures. Postoperative and degenerative changes are seen. Note: No significant discrepancy from the preliminary report. Reviewed by: Andres Peña MD on 11/28/2020 6:54 AM [place] Approved by: Andres Peña MD on 11/28/2020 6:54 AM [place] Station ID: [id number]
[2020-11-28 08:22] LABS: BILIRUBIN,URINE NEGATIVE (NEGATIVE); GLUCOSE, URINE (UA) NEGATIVE (NEGATIVE); KETONES,URINE (UA) NEGATIVE (NEGATIVE); LEUKOCYTE ESTERASE, URINE NEGATIVE (NEGATIVE); NITRITE,URINE NEGATIVE (NEGATIVE); OCCULT BLOOD,URINE NEGATIVE (NEGATIVE); PROTEIN,URINE NEGATIVE (NEGATIVE); UROBILINOGEN,URINE 0.2 (NORMAL) E.U./dL (NORMAL)
[2020-11-28 08:23] LABS: CLARITY,URINE CLEAR (CLEAR)
[2020-11-28] MEDS: HEPARIN 5,000 UNIT/ML VIAL SUBQ SCH ×3 (09:05→22:05)
[2020-11-28] MEDS: PREGABALIN 100 MG CAPSULE PO SCH ×2 (09:08→22:06)
--- NOTE | 2020-11-28 10:52 | SURGERY HX AND PHYSICAL(T) ---
Surgical History & Physical - Chief Complaint/HPI Chief Complaint: S/P Fall History of Present Illness: Status post fall no loss of consciousness see below for complete trauma intake - PMH/PSH/Social Hx Does the pt have a hx of MRSA?: No Cardiovascular: Hypertension, High cholesterol Endocrine/Autoimmune: Type 2 diabetes Gastrointestinal: Cirrhosis PMH Other: pancreatic cysts Smoking Status: Never smoker Does the pt drink ETOH?: No Does the pt have substance abuse?: No - Home Meds and Allergies Home Medications: Acetaminophen/Diphenhydramine [Pain Relief Pm 25-500 mg Cplt] 1 each PO QPM PRN 11/28/20 Colchicine [Colcrys] 0.6 mg PO DAILY 11/28/20 Felodipine [Felodipine ER] 5 mg PO DAILY 11/28/20 Lisinopril [Zestril] 20 mg PO DAILY 11/28/20 Meclizine [Antivert] 25 mg PO TID PRN 11/28/20 Melatonin/Pyridoxine [Melatonin 5 mg Tablet] 10 mg PO QPM PRN 11/28/20 Metoprolol Succinate [Toprol Xl] 50 mg PO DAILY 11/28/20 Omeprazole [PriLOSEC] 40 mg PO DAILY 11/28/20 Simvastatin [Zocor] 20 mg PO QPM 11/28/20 Allergies/Adverse Reactions: Allergies Allergy/AdvReac Type Severity Reaction Status Date / Time No Known Drug Allergies Allergy Verified 11/28/20 00:57 - Vital Signs Heart Rate: 82 Blood Pressure: 135/68 Temperature: 37.1 C Respiratory Rate: 20 O2 Saturation: 99 Weight (kg): 49.89 kg Height: 1.42 m - Physical Exam Comments/Other: Chief complaint: Status post fall History of present illness: 85-year-old female status post fall from standing. No loss of consciousness. Ambulatory at scene. Brought in by daughter. Ambulatory to and from motor vehicle. Left chest pain. No shortness of breath. Past medical history and past surgical history reviewed and, in the patients, electronic medical record. Allergies reviewed and within the patient's electronic medical record. Medications reviewed and within the patient's electronic medical record. Review of systems performed and all negative except as noted below/above Please see electronic medical record for the patient's social history Trauma physical exam: Airway: Patient speaking without any respiratory distress, bilateral breath sounds auscultated across all lung abernathy Breathing: Bilateral breath sounds auscultated across all lung abernathy, imaging with no evidence of pneumothorax or hemothorax Circulation: Patient with bilateral peripheral IV access, IV crystalloids running as per protocol, hemodynamically acceptable Patient was evaluated across all extremities please see below and was appropriately exposed to afford such. 1. Head: PERRLA, EOMI, no rob orbital ecchymoses, ears with tympanic membranes intact no otorrhea, no rhinorrhea, c-collar in place, cranial nerves II through XII intact grossly. 2. C-spine clearance: No tenderness to palpation on full range of motion: Full range of motion with no tenderness midline C-spine on flexion and extension Full range of motion with known tenderness midline C-spine on lateral rotation left and right 3. Chest as per above with equal breath sounds bilaterally chest tenderness however no crepitus or other concerning features please see imaging below no splinting no respiratory distress. 4. S1-S2 regular rate rhythm 5. Abdomen soft nontender nondistended no rebound no guarding, FAST performed with no fluid noted in the splenorenal space, hepatorenal space, suprapubic space, or pericardial sac. 6. Patient moving all extremities however extremity discomfort. See dedicated films 7. GCS 15, alert awake and oriented x3 8. No focal sensorimotor deficits bilaterally, no spinal step-offs or tenderness along the thoracic, lumbar spines. 9. No genitourinary complaints or perianal complaints. Imaging: See below - Patient Review Patient Review: Problems were reviewed with the patient during this visit. Medications were reviewed with the patient during this visit. Allergies were reviewed this patient during this visit. Pertinent Tests Reviewed: All pertitent test for this patient were reviewed. - Assessment & Plan Assessment and Plan: 85-year-old female status post fall with left rib fractures 8 through 10. Minimally displaced. No pneumothorax. No other occult injuries. (1) GI - IVF, bowel regimen, advance diet as tolerated. GI ppx. Opiate sparring analgesia. (2) SURGERY - no acute surgical intervention at this time. Pain management. (3) Renal/Lytes - continue IVF. Renal indices within normal limits. (4) Respiratory - O2 as necessary. Continue IS. (5) Heme - Will continue with DVT ppx. H/H stable. (6) Cardiovascular - HD acceptable. (7) Neuro - Opiate sparring analgesia. Antispasmodics with Robaxin. [Toradol]. Neuropathic agents. (8) Physical therapy and Occupational Therapy. IMAGING: Left hip and pelvic x-rays negative for acute fracture or dislocation. Degenerative changes can be seen. Chest films revealed minimally displaced left lateral eighth through 10th rib fractures. Postoperative and degenerative changes are seen.
--- NOTE | 2020-11-28 11:33 | PHARMACY PROGRESS NOTE ---
- Best Possible Medication History Admit Date and Time: 11/28/20 0524 Processed by: Pharmacy Medication History completed: Yes Patient Interview: Completed Secondary Source(s): Physician records As the person ultimately responsible for medication therapy, providers are able to order a medication from an existing home medication list in [facility] via the "Reconcile Routine" prior to Confirmation of that medication by ground support equipment mechanic. Such practice is discouraged except when the physician, in their clinical judgment, deems that a medical need exists for a medication without regard to previous use.
[2020-11-28] MEDS: KETOROLAC 15 MG/ML VIAL IVP SCH ×2 (11:54→19:01)
[2020-11-28] MEDS: INSULIN ASPART 300 UNIT/3 ML PEN SUBQ SCH (22:11)
[2020-11-29] MEDS: methocarbamoL 500 MG TABLET PO SCH ×4 (00:24→18:13)
[2020-11-29] MEDS: KETOROLAC 15 MG/ML VIAL IVP SCH ×4 (00:26→18:13)
[2020-11-29] MEDS: SODIUM CHLORIDE FLUSH 0.9% 10 ML SYRINGE IVP SCH ×6 (01:19→17:04)
[2020-11-29] MEDS: D5NS W/20 MEQ KCL 1,000 ML IV SCH ×2 (06:56→14:45)
[2020-11-29] MEDS: PANTOPRAZOLE 40 MG VIAL IVP SCH (06:57)
--- NOTE | 2020-11-29 08:11 | XRAY Report ---
PROCEDURE: Chest 1 View X-Ray INDICATIONS: eval for PTX/PNA TECHNIQUE: One view of the chest was acquired. COMPARISON: X-ray wrist 11/28/2020 FINDINGS: Surgical changes and devices: Hilar surgical clips are noted. Lungs and pleura: No pleural effusions or pneumothorax. Lungs are clear. Mediastinum: Mediastinal contours appear normal. Heart size is normal. Bones and chest wall: Left lateral eighth through 10th rib fractures are again noted. Overlying soft tissues appear unremarkable. IMPRESSION: No acute pulmonary process. Fractures again noted on the left. Reviewed by: Sheree Dean MD on 11/29/2020 8:10 AM PDT Approved by: Sheree Dean MD on 11/29/2020 8:10 AM PDT Station ID: [id number]
[2020-11-29] MEDS: INSULIN ASPART 300 UNIT/3 ML PEN SUBQ SCH ×3 (08:42→17:04)
[2020-11-29] MEDS: PREGABALIN 100 MG CAPSULE PO SCH (08:42)
[2020-11-29] MEDS: HEPARIN 5,000 UNIT/ML VIAL SUBQ SCH (08:51)
[2020-11-29] MEDS ORDERED: ACETAMINOPHEN 500 MG TABLET PO PRN (12:10)
--- NOTE | 2020-11-29 17:34 | Discharge Plan ---
Discharge Plan Problem Reviewed?: Yes Disposition: 06 Home Health Service Condition: Good Prescriptions: methocarbamoL [Robaxin] 500 mg PO Q6HR PRN #30 tablet PRN Reason: Spasms Pregabalin [Lyrica] 100 mg PO BID #60 tablet traMADol [Ultram] 50 mg PO Q4-6H PRN #30 tablet PRN Reason: Pain Diet: Soft Activity Restrictions: Wt Bearing as Tolerated Shower Restrictions: No Driving Restrictions: Yes (no driving while taking narcotics) Assessment: 1. Follow-up with primary care within 1 to 2 weeks of discharge. 2. With regard to any loss of consciousness, call or return to ER through the change in sensorium/consciousness. 3. Continue with incentive spirometry and pain management as it relates to the rib fractures. 4. Any respiratory compromise proceed to the urgent care/ER and/or your primary care for instructions as a relates to shortness of breath or other symptoms. Plan of Treatment: DISCHARGE INSTRUCTIONS TEMPLATE: Call immediately or go to emergency room for any change in sensorium or fluctuations in consciousness. Use narcotics sparingly. Follow-up with orthopedics for any persistent upper extremity discomfort. Call for any shortness of breath or return to the emergency room for any worrisome symptoms as a relates to respiratory function. No heavy lifting, pushing, or pulling. Stairs are allowed, no stren uous/exertional activities. 5-10lbs weight carrying limit (i.e. gallon of milk) If provided, abdominal binder while out of bed and while ambulating. Call or proceed to clinic/ER for fevers, severe pain, nausea, vomiting, inability to pass flatus/stool, bleeding, wound redness/discharge, weakness, excessively loose stool/diarrhea, or for any other reasonably worrisome symptom or concern. Soft MECHNICAL diet, no raw vegetables, avoid high fiber foods. Colace 100mg by mouth twice to three times daily while taking narcotic pain medication. If no bowel movement in 24-48hr, may take 17g Miralax in 8oz water twice daily until bowel movement. May shower, no submersive bathing. No driving while taking narcotic pain medications. Follow up with primary care provider and/or medical subspecialist following discharge as well. Impression/Plan 1. Tramadol every 4-6 hours as needed for pain 2. Take Colace twice daily and MiraLAX daily as per above while taking narcotics and if no bowel function 3. Avoid nonsteroidals and continue with acetaminophen 650 mg every 6 hours not to exceed 4 g daily 4. Patient to also follow-up in surgery clinic and or primary care clinic within 2 weeks. 5. Patient to call or return to the hospital through ER for fevers, nausea, vomiting, abdominal pain or any other worrisome symptoms or concerns. 6. Patient not to return to any work capacity until seen in clinic. No Smoking: If you smoke, Please STOP! Call for help. Follow-up with: Raza Kim DO [Primary Care Provider] - Bill Ocampo MD [Provider Admit Priv/Credential] - 2 Weeks
--- NOTE | 2020-11-29 17:35 | DISCHARGE SUMMARY ---
"Discharge Summary Admit Date: 11/28/20 Discharge Date: 11/29/20 Discharging Provider: TRINIDAD Travis Status: Attempt Resuscitation Condition at Discharge: Good Discharge Disposition: Home Health Service - DIAGNOSES Admission Diagnoses: 1. Status post fall 2. Rib fractures 3. Chest pain, traumatic Discharge Diagnoses with Status of Each Condition: 1. Status post fall - TREATED 2. Rib fractures - STABLE 3. Chest pain, traumatic - TREATED - HPI History of Present Illness: 85-year-old female status post fall from standing. No loss of consciousness. Ambulatory at scene. Brought in by daughter. Ambulatory to and from motor vehicle. Left chest pain. No shortness of breath. Past medical history and past surgical history reviewed and, in the patients, electronic medical record. Allergies reviewed and within the patient's electronic medical record. Medications reviewed and within the patient's electronic medical record. Review of systems performed and all negative except as noted below/above Please see electronic medical record for the patient's social history - CONSULTS | PROCEDURES Consultations: NONE Procedures: NONE - HOSPITAL COURSE Hospital Course: 85-year-old female status post fall with left rib fractures 8 through 10. Minimally displaced. No pneumothorax. No other occult injuries. (1) GI - IVF, bowel regimen, advance diet as tolerated. GI ppx. Opiate sparring analgesia. (2) SURGERY - no acute surgical intervention at this time. Pain management. (3) Renal/Lytes - continue IVF. Renal indices within normal limits. (4) Respiratory - O2 as necessary. Continue IS. (5) Heme - Will continue with DVT ppx. H/H stable. (6) Cardiovascular - HD acceptable. (7) Neuro - Opiate sparring analgesia. Antispasmodics with Robaxin. [Toradol]. Neuropathic agents. (8) Physical therapy and Occupational Therapy. IMAGING: Left hip and pelvic x-rays negative for acute fracture or dislocation. Degenerative changes can be seen. Chest films revealed minimally displaced left lateral eighth through 10th rib fr actures. Postoperative and degenerative changes are seen. HOSPITAL COURSE: Patient was admitted to hospital for pain control given multiple rib fractures. Repeat x-ray showed no evidence of pneumothorax. Patient was seen by physical therapy and Occupational Therapy with no contraindication to proceeding home. Tolerated oral intake without any complication. Denied nausea denied vomiting. Was advanced for diet without any complication. Patient was maintained on a bowel regimen. Patient was tolerating oral analgesia, p.o. nutrition with soft diet, voiding spontaneously, with positive bowel function. Afebrile hemodynamically acceptable. Discharge instructions given. Plan was as follows on discharge: 1. Follow-up with primary care within 1 to 2 weeks of discharge. 2. With regard to any loss of consciousness, call or return to ER through the change in sensorium/consciousness. 3. Continue with incentive spirometry and pain management as it relates to the rib fractures. 4. Any respiratory compromise proceed to the urgent care/ER and/or your primary care for instructions as a relates to shortness of breath or other symptoms. 5. Continue with sling until follow-up with orthopedics. Plan of Treatment: DISCHARGE INSTRUCTIONS TEMPLATE: Call immediately or go to emergency room for any change in sensorium or fluctuations in consciousness. Use narcotics sparingly. Follow-up with orthopedics for any persistent upper extremity discomfort. Call for any shortness of breath or return to the emergency room for any worrisome symptoms as a relates to respiratory function. No heavy lifting, pushing, or pulling. Stairs are allowed, no strenuous/exertional activities. 5-10lbs weight carrying limit (i.e. gallon of milk) Call or proceed to clinic/ER for fevers, severe pain, nausea, vomiting, inability to pass flatus/stool, bleeding, wound redness/discharge, weakness, excessively loose stool/diarrhea, or for any other reasonably worrisome symptom or concern. Soft MECHNICAL diet, no raw vegetables, avoid high fiber foods. Colace 100mg by mouth twice to three times daily while taking narcotic pain medication. If no bowel movement in 24-48hr, may take 17g Miralax in 8oz water twice daily until bowel movement. May shower, no submersive bathing. No driving while taking narcotic pain medications. Follow up with primary care provider and/or medical subspecialist following discharge as well. - ALLERGIES Allergies/Adverse Reactions: Allergies Allergy/AdvReac Type Severity Reaction Status Date / Time No Known Drug Allergies Allergy Verified 11/28/20 00:57 - MEDICATIONS Home Medications: Ambulatory Orders Medication Instructions Recorded Confirmed Colchicine [Colcrys] 0.6 mg PO DAILY 11/28/20 11/28/20 Felodipine [Felodipine ER] 5 mg PO DAILY 11/28/20 11/28/20 Lisinopril [Zestril] 20 mg PO DAILY 11/28/20 11/28/20 Meclizine [Antivert] 25 mg PO TID PRN 11/28/20 11/28/20 Melatonin/Pyridoxine [Melatonin 5 10 mg PO QPM PRN 11/28/20 11/28/20 mg Tablet] Metoprolol Succinate [Toprol Xl] 50 mg PO DAILY 11/28/20 11/28/20 Omeprazole [PriLOSEC] 40 mg PO DAILY 11/28/20 11/28/20 Simvastatin [Zocor] 20 mg PO QPM 11/28/20 11/28/20 Acetaminophen [Tylenol] 1,000 mg PO Q6H PRN tablet 11/29/20 Pregabalin [Lyrica] 100 mg PO BID #60 tablet 11/29/20 methocarbamoL [Robaxin] 500 mg PO Q6HR PRN #30 tablet 11/29/20 traMADol [Ultram] 50 mg PO Q4-6H PRN #30 tablet 11/29/20 - PHYSICAL EXAM AT DISCHARGE Physical Exam Other/Comments: General Appearance: positive: No acute distress Eyes Bilateral: positive: Normal inspection ENT: positive: ENT inspection nml Neck: positive: Nml inspection Respiratory: positive: Chest non-tender, No respiratory distress, Breath sounds nml. negative: Wheezes, Rales, Rhonchi Cardiovascular: positive: Regular rate & rhythm Abdomen: positive: No distention, Other. negative: Guarding, Rebound Extremities: positive: Non-tender, Full ROM, Nml appearance Neurologic/Psychiatric: positive: Oriented x3, CN's nml (2-12) - LABS Result Diagrams: 11/28/20 04:40 11/28/20 04:40 - TIME SPENT Time Spent in Discharge (Minutes): 60"
[2020-11-29 19:31] VITALS: BP 142/71
[2020-11-30] MEDS ORDERED: PANTOPRAZOLE 40 MG TABLET PO SCH (07:00)
== END 2020-11-29 19:50 | disposition home health service (06) | DRG 948 ==
LOC: ED 00:50 → MS3 05:24
PROVIDERS: ADMIT Surgery; ATTEND Surgery
DX: G89.11 Acute pain due to trauma (principal); S70.02XA Contusion of left hip, initial encounter; W18.39XA Other fall on same level, initial encounter; Y92.008 Other place in unspecified non-institutional (private) residence as the place of occurrence of the external cause; K74.60 Unspecified cirrhosis of liver; S22.42XA Multiple fractures of ribs, left side, initial encounter for closed fracture; E78.00 Pure hypercholesterolemia, unspecified; W18.30XA Fall on same level, unspecified, initial encounter; Y92.9 Unspecified place or not applicable; I10 Essential (primary) hypertension; E11.9 Type 2 diabetes mellitus without complications
CPT/HCPCS: 36415; 71045; 71101; 73502; 80053; 81003; 83690; 85025; 87150; 87631; 96372; 97161; 97165; 99284; 99285; A9270; J1170; 0202U; 81001; 87086

== ENCOUNTER 2021-01-10 08:00 | Outpatient (CLI) | payer MEDICARE, OTHER ==
[2021-01-10 12:06] LABS: BASOPHILS # (AUTO) 0.1 10^3/uL (0.0-0.1); EOSINOPHILS # (AUTO) 0.6 10^3/uL (0.0-0.7); EOSINOPHILS % (AUTO) 8.3 %; HCT - HEMATOCRIT 35.6 % (37.0-47.0); HGB - HEMOGLOBIN 11.5 g/dL (12.0-16.0); LYMPHOCYTES # (AUTO) 2.2 10^3/uL (1.5-3.5); LYMPHOCYTES % (AUTO) 30.4 %; MEAN CORPUSCULAR HEMOGLOBIN 32.8 pg (27.0-31.0); MEAN CORPUSCULAR HGB CONC 32.3 g/dL (32.0-36.0); MEAN CORPUSCULAR VOLUME 101.4 fL (81.0-99.0); MEAN PLATELET VOLUME 10.4 fL (7.9-10.8); MONOCYTES # (AUTO) 0.6 10^3/uL (0.0-1.0); MONOCYTES % (AUTO) 8.8 %; NEUTROPHILS # (AUTO) 3.8 10^3/uL (1.5-6.6); NEUTROPHILS % (AUTO) 51.4 %; PLT - PLATELET COUNT 221 10^3/uL (130-450); RED BLOOD COUNT 3.51 10^6/uL (4.20-5.40); RED CELL DISTRIBUTION WIDTH 16.2 % (12.0-15.0); WHITE BLOOD COUNT 7.3 x10^3/uL (4.8-10.8)
[2021-01-10 12:07] LABS: SLIDE REVIEW? Indicated
[2021-01-10 12:16] LABS: PT - PROTHROMBIN TIME 10.8 secs (9.9-12.6)
[2021-01-10 12:33] LABS: ESTIMATED AVERAGE GLUCOSE 100 mg/dL (70-100); HEMOGLOBIN A1c% 5.1 % (4.27-6.07)
[2021-01-10 12:39] LABS: WBC MORPHOLOGY (MULTIPLE) 1+ REACTIVE LYMPHS (NORMAL)
[2021-01-10 12:58] LABS: ALBUMIN 3.1 g/dL (3.2-5.5); ALBUMIN/GLOBULIN RATIO 0.7 (1.0-2.2); ALKALINE PHOSPHATASE 172 IU/L (42-121); ALT ALANINE AMINOTRANSFERASE 28 IU/L (10-60); AST ASPARTATE AMINOTRANSFERASE 57 IU/L (10-42); BILIRUBIN,TOTAL 1.3 mg/dL (0.2-1.0); BUN - BLOOD UREA NITROGEN 11 mg/dL (6-20); CALCIUM 9.1 mg/dL (8.5-10.3); CARBON DIOXIDE - CO2 28 mmol/L (21-32); CHLORIDE 106 mmol/L (101-111); CHOL/HDL RATIO 2.8 (<4.4); CHOLESTEROL 220 mg/dL; CREATININE 0.7 mg/dL (0.4-1.0); GFR - MDRD 79 (>89); GLUCOSE 110 mg/dL (70-100); HDL CHOLESTEROL 78 mg/dL; LDL CHOLESTEROL,CALCULATED 126 mg/dL; LDL/HDL RATIO 1.6 (<4.4); MAGNESIUM 1.9 mg/dL (1.7-2.8); SODIUM 142 mmol/L (135-145); TOTAL PROTEIN 7.5 g/dL (6.7-8.2); TRIGLYCERIDES 82 mg/dL; URIC ACID 7.4 mg/dL (2.6-7.2); VLDL CHOLESTEROL 16 mg/dL
== END 2021-01-10 23:59 | disposition home or self-care (01) ==
LOC: LAB.WCP 08:00
PROVIDERS: ATTEND Family Medicine
DX: K74.60 Unspecified cirrhosis of liver (principal); E11.42 Type 2 diabetes mellitus with diabetic polyneuropathy; M10.9 Gout, unspecified
CPT/HCPCS: 36415; 80053; 80061; 83036; 83721; 83735; 84550; 85025; 85610

== ENCOUNTER 2021-07-01 09:37 | Outpatient (CLI) | payer MEDICARE, OTHER ==
[2021-07-01 14:37] LABS: BASOPHILS # (AUTO) 0.1 10^3/uL (0.0-0.1); BASOPHILS % (AUTO) 1.4 %; EOSINOPHILS # (AUTO) 0.5 10^3/uL (0.0-0.7); EOSINOPHILS % (AUTO) 6.8 %; HGB - HEMOGLOBIN 12.2 g/dL (12.0-16.0); LYMPHOCYTES # (AUTO) 2.4 10^3/uL (1.5-3.5); LYMPHOCYTES % (AUTO) 31.8 %; MEAN CORPUSCULAR HEMOGLOBIN 31.6 pg (27.0-31.0); MEAN CORPUSCULAR HGB CONC 32.1 g/dL (32.0-36.0); MEAN CORPUSCULAR VOLUME 98.4 fL (81.0-99.0); MEAN PLATELET VOLUME 10.3 fL (7.9-10.8); MONOCYTES # (AUTO) 0.6 10^3/uL (0.0-1.0); MONOCYTES % (AUTO) 7.8 %; NEUTROPHILS # (AUTO) 3.8 10^3/uL (1.5-6.6); NEUTROPHILS % (AUTO) 51.9 %; PLT - PLATELET COUNT 280 10^3/uL (130-450); RED BLOOD COUNT 3.86 10^6/uL (4.20-5.40); RED CELL DISTRIBUTION WIDTH 15.8 % (12.0-15.0); WHITE BLOOD COUNT 7.4 x10^3/uL (4.8-10.8)
[2021-07-01 14:44] LABS: ALBUMIN/GLOBULIN RATIO 0.5 (1.0-2.2); BILIRUBIN,TOTAL 0.9 mg/dL (0.2-1.0); CALCIUM 8.8 mg/dL (8.5-10.3); CREATININE 0.9 mg/dL (0.4-1.0); MAGNESIUM 1.9 mg/dL (1.7-2.8); POTASSIUM 3.9 mmol/L (3.5-5.0); PT - PROTHROMBIN TIME 11.5 secs (9.9-12.6); TOTAL PROTEIN 8.5 g/dL (6.7-8.2)
== END 2021-07-01 09:38 | disposition home or self-care (01) ==
LOC: LAB.N 09:37
PROVIDERS: ATTEND Family Medicine
DX: K74.60 Unspecified cirrhosis of liver (principal); I10 Essential (primary) hypertension
CPT/HCPCS: 36415; 80053; 83735; 85025; 85610

== ENCOUNTER 2021-09-06 08:44 | Outpatient (CLI) | payer MEDICARE, OTHER ==
--- NOTE | 2021-09-06 15:55 | Nuclear Medicine Report ---
PROCEDURE: Bone Whole Body INDICATIONS: BREAST CA RADIOPHARMACEUTICAL: 25.1 mCi Tc-99m MDP IV. TECHNIQUE: Delayed whole-body scintigrams were obtained approximately 3-4 hours after intravenous injection of r adiotracer. Anterior and posterior views were acquired from vertex to feet. Additional left and rig ht oblique views of the skull, cervical spine thorax were obtained. COMPARISON: None available. FINDINGS: There are foci of mildly increased uptake in the medial aspect of the left ninth and 10th ribs, khadijah tible with rib fractures. Increased uptake is also noted in the anterior aspect of the left third an d fourth ribs, most likely secondary to trauma. No suspicious lesions in skull, sternum, scapulae, cl avicles, bony pelvis, and visualized shafts of the long bones. Foci of increased activity in the cerv ical, thoracic and lumbar spine are present, most likely secondary to degenerative disc and facet dis ease; early metastatic disease could be obscured. Mild degenerative joint disease in shoulders bilate rally and right knee. IMPRESSION: 1. No definitive scintigraphic evidence to suggest osseous metastasis. 2. Increased uptake in the left ribs are most likely secondary to trauma. Recommend clinical correlat ion. Reviewed by: Mark Patrick MD on 09/06/2021 3:54 PM PDT Approved by: Mark Patrick MD on 09/06/2021 3:54 PM PDT Station ID: [id number]
== END 2021-09-06 08:45 | disposition home or self-care (01) ==
LOC: DI 08:44
PROVIDERS: ATTEND Internal Medicine Hematology & Oncology
DX: C50.212 Malignant neoplasm of upper-inner quadrant of left female breast (principal); R19.8 Other specified symptoms and signs involving the digestive system and abdomen; R59.0 Localized enlarged lymph nodes
CPT/HCPCS: 78306